=== PATIENT | female | born 1960 | race Caucasian/White ===

== ENCOUNTER 2018-09-24 06:13 | Day surgery (SDC) | payer OTHER ==
[~2018-09-24] VITALS: Ht 160 cm; Wt 70.7 kg
[2018-09-24 08:10] VITALS: Ht 160 cm; Wt 70.7 kg
[2018-09-24 08:39] VITALS: BP 118/80; PULSE 59; RESP 18
[2018-09-24] MEDS ORDERED: FENTAnyl 50 MCG/ML VIAL ONE (09:34)
[2018-09-24] MEDS ORDERED: MIDAZOLAM 1 MG/ML 2 ML INJ ONE ×2 (09:34)
[2018-09-24 09:57] VITALS: BP 111/71; PULSE 62; RESP 18
== END 2018-09-24 14:32 | disposition home or self-care (01) ==
LOC: GIL 06:13
PROVIDERS: ATTEND Internal Medicine Gastroenterology
DX: Z12.11 Encounter for screening for malignant neoplasm of colon (principal); K57.30 Diverticulosis of large intestine without perforation or abscess without bleeding; K20.8 Other esophagitis; K29.50 Unspecified chronic gastritis without bleeding
CPT/HCPCS: 43239; 45378; 88305; 88312; J2250; J3010; Z7610